=== PATIENT | male | born 1955 | race Two or more races ===

== ENCOUNTER → 2024-11-19 | Emergency (ER) | payer OTHER ==
[~2024-11-19] VITALS: Ht 180.3 cm; Wt 95.3 kg
[~2024-11-19] MED LIST: ACETAMINOPHEN 500 MG GEL..CAP PO ONE; DEXAMETHASONE SODIUM PHOSPHATE 4 MG/ML VIAL IM ONE; DEXAMETHASONE SODIUM PHOSPHATE 4 MG/ML VIAL ONE; KETO10TA2 PO; KETOROLAC TROMETHAMINE 30 MG VIAL ONE; KETOROLAC TROMETHAMINE 60 MG VIAL IM ONE; MEDROLPACK PO; NORFLEX100MG PO; ORPHENADRINE CITRATE 30 MG/ML AMPUL IM ONE; ORPHENADRINE CITRATE 30 MG/ML AMPUL ONE; TETRACAINE HCL 20 DR/ML DROPS OP ONE
== END | disposition home or self-care (01) ==
LOC: ER 09:45
DX: M25.552 Pain in left hip (principal); Z96.643 Presence of artificial hip joint, bilateral